=== PATIENT | male | born 1935 | race African-American/Black ===

== ENCOUNTER 2017-02-28 08:12 | Observation (INO) | payer MEDICARE, OTHER ==
[2017-02-28 08:38] LABS: HEMATOCRIT 38.8 % (37.9-51.0); HEMOGLOBIN 12.9 g/dL (13.5-17.0); HGB HCT DIFFERENCE -0.1; MEAN CORPUSCULAR HEMOGLOBIN 26.9 pg (27.0-33.4); MEAN CORPUSCULAR HGB CONC 33.2 g/dL (32.0-36.0); MEAN CORPUSCULAR VOLUME 81 fl (80-97); RED BLOOD COUNT 4.77 10^6/uL (4.35-5.55); RED CELL DISTRIBUTION WIDTH 14.2 % (11.5-14.0); WHITE BLOOD COUNT 3.8 10^3/uL (4.0-10.5)
[2017-02-28 08:55] LABS: ALANINE AMINOTRANSFERASE 28 U/L (21-72); ALBUMIN 3.8 g/dL (3.5-5.0); ALKALINE PHOSPHATASE 106 U/L (38-126); ANION GAP 12 (5-19); ASPARTATE AMINO TRANSFERASE 25 U/L (17-59); BILIRUBIN,DIRECT 0.2 mg/dL (0.0-0.4); BILIRUBIN,TOTAL 0.5 mg/dL (0.2-1.3); BLOOD UREA NITROGEN 25 mg/dL (7-20); CALCIUM 8.8 mg/dL (8.4-10.2); CARBON DIOXIDE 24 mmol/L (22-30); CHLORIDE 107 mmol/L (98-107); CREATININE RESULT 1.86 mg/dL (0.52-1.25); GLUCOSE 114 mg/dL (75-110); POTASSIUM 4.1 mmol/L (3.6-5.0); SODIUM 142.8 mmol/L (137-145); TOTAL PROTEIN 6.5 g/dL (6.3-8.2)
[2017-02-28 08:59] LABS: BAND NEUTROPHILS % (MANUAL) 3 % (3-5); BASOPHILS % (MANUAL) 0 % (0-2); EOSINOPHILS % (MANUAL) 0 % (0-6); LYMPHOCYTES % (MANUAL) 6 % (13-45); TOTAL CELLS COUNTED 100
[2017-02-28 09:00] LABS: RBC MORPHOLOGY COMMENT NORMO-CYTIC/CHROMIC
--- NOTE | 2017-02-28 09:33 | ER Document Report ---
ED GI/ - General Time seen by provider: 09:40 Mode of Arrival: Ambulatory Information source: Patient TRAVEL OUTSIDE OF THE [place] IN LAST 30 DAYS: No - HPI Patient complains to provider of: Vomiting Onset: Other - see HPI note Timing/Duration: Sudden Associated symptoms: Chills, Lightheaded, Nausea, Vomiting Similar symptoms previously: No Recently seen / treated by doctor: No <ARMANI MARTINEZ - Last Filed: 02/28/17 11:18> <CHERISE FOY - Last Filed: 02/28/17 13:39> - General Chief Complaint: Nausea/Vomiting Stated Complaint: VOMITING Notes: Patient is an 81 year old male presenting to the ED for nausea and vomiting. Patient states that he woke up at 04:00 this morning with body aches, chills, and nausea, and at 06:00 the patient was vomiting. Patient mostly has been dry heaving. Patient had dinner last night in which he ate a sausage dog. Patient denies any pain, shortness of breath, diarrhea, or chest pain. Patient has no known allergies. Patient has a history of diabetes mellitus, is taking lasix for his chronic leg edema, and a negative stress test in November 2015. Patient' s PCP is Dr. Kay. (ARMANI MARTINEZ) - Related Data Allergies/Adverse Reactions: No Known Allergies Allergy (Verified 02/28/17 08:38) Past Medical History - General Information source: Patient - Social History Smoking Status: Unknown if Ever Smoked Family History: None Patient has suicidal ideation: No Patient has homicidal ideation: No - Past Medical History Cardiac Medical History: Reports: Hx Congestive Heart Failure Pulmonary Medical History: Reports: Hx Pneumonia Endocrine Medical History: Reports: Hx Diabetes Mellitus Type 2 - Starlix Musculoskeltal Medical History: Reports Hx Arthritis - lower back Past Surgical History: Reports: Hx Kidney (Renal Surgery) - right nephrectomy due to cyst (06/2007), Hx Orthopedic Surgery - Bilateral Knee - Immunizations Hx Diphtheria, Pertussis, Tetanus Vaccination: No <ARMANI MARTINEZ - Last Filed: 02/28/17 11:18> Review of Systems - Review of Systems Constitutional: No symptoms reported EENT: No symptoms reported Cardiovascular: No symptoms reported. denies: Chest pain Respiratory: No symptoms reported. denies: Short of breath Gastrointestinal: See HPI, Nausea, Vomiting. denies: Diarrhea Genitourinary: No symptoms reported Male Genitourinary: No symptoms reported Musculoskeletal: No symptoms reported Skin: No symptoms reported Hematologic/Lymphatic: No symptoms reported Neurological/Psychological: No symptoms reported -: Yes All other systems reviewed and negative <ARMANI MARTIENZ - Last Filed: 02/28/17 11:18> Physical Exam - Vital signs Interpretation: Normal - General General appearance: Appears well - patient appears comfortable and is soft spoken, Alert In distress: Mild - HEENT Head: Normocephalic, Atraumatic Eyes: Normal Pupils: PERRL Mucous membranes: Moist - Respiratory Respiratory status: No respiratory distress Chest status: Nontender Breath sounds: Normal Chest palpation: Normal - Cardiovascular Rhythm: Regular Heart sounds: Normal auscultation Murmur: No - Abdominal Inspection: Normal Distension: No distension Bowel sounds: Normal Tenderness: Nontender Organomegaly: No organomegaly - Back Back: Normal, Nontender - Extremities General upper extremity: Normal inspection, Normal ROM, Normal strength General lower extremity: Edema - 2+ pitting edema consistent with patient's history, Other - bunion on the feet bilaterally, worse on the right; dry, hard ulcerated area on the medial side of the right foot, there is a hole with concentric rings of dry skin, no inflammation - Neurological Neuro grossly intact: Yes Cognition: Normal Orientation: AAOx4 [place] Coma Scale Eye Opening: Spontaneous James Coma Scale Verbal: Oriented [place] Coma Scale Motor: Obeys Commands James Coma Scale Total: 15 Speech: Normal Sensory: Normal - Psychological Associated symptoms: Normal affect, Normal mood - Skin Skin Temperature: Warm Skin Moisture: Dry <ARMANI MARTINEZ - Last Filed: 02/28/17 11:18> <CHERISE FOY - Last Filed: 02/28/17 13:39> - Vital signs Vitals: Resp Pulse Ox 24 H 94 02/28/17 08:18 02/28/17 08:18 Course - Laboratory Result Diagrams: 02/28/17 08:23 02/28/17 08:23 <ARMANI MARTINEZ - Last Filed: 02/28/17 11:18> - Laboratory Result Diagrams: 02/28/17 08:23 02/28/17 08:23 - Diagnostic Test Radiology reviewed: Image reviewed, Reports reviewed - Chest x-ray shows right- sided aortic arch no acute process. - EKG Interpretation by Me EKG shows normal: Sinus rhythm, [place], Intervals, QRS Complexes, ST-T Waves Rate: Normal - 87 Rhythm: NSR When compared to previous EKG there are: No significant change - Consults Dr. Mojica Time consulted: 12:05 Consulted provider: will see as inpatient <CHERISE FOY - Last Filed: 02/28/17 13:39> - Vital Signs Vital signs: Temp Pulse Resp BP Pulse Ox 98.1 F 95 25 H 118/65 98 02/28/17 10:19 02/28/17 08:31 02/28/17 12:01 02/28/17 12:01 02/28/17 12:01 - Laboratory Laboratory results interpreted by me: 02/28/17 02/28/17 02/28/17 08:23 08:23 08:23 WBC 3.8 L Hgb 12.9 L MCH 26.9 L RDW 14.2 H Seg Neuts % (Manual) 91 H Lymphocytes % (Manual) 6 L Monocytes % (Manual) 0 L Abs Lymphs (Manual) 0.2 L Abs Monocytes (Manual) 0.0 L BUN 25 H Creatinine 1.86 H Est GFR ( Amer) 42 L Est GFR (Non-Af Amer) 35 L Glucose 114 H Creatine Kinase 179 H Discharge <MICHELLEARMANI - Last Filed: 02/28/17 11:18> - Discharge Admitting Provider: Rahul Mojica covering. Unit Admitted: Medical Floor <CHERISE FOY - Last Filed: 02/28/17 13:39> - Discharge Clinical Impression: Fever with chills, Left shift without diagnosis of specific infection, Stage III chronic kidney disease Nausea and vomiting Qualifiers: Vomiting type: unspecified Vomiting Intractability: non-intractable Qualified Code(s): R11.2 - Nausea with vomiting, unspecified Diabetes mellitus Qualifiers: Diabetes mellitus type: type 2 Diabetes mellitus complication status: without complication Diabetes mellitus halfway insulin use: without halfway use Qualified Code(s): E11.9 - Type 2 diabetes mellitus without complications Scribe Attestation: 02/28/17 13:39 I personally performed the services described in the documentation, reviewed and edited the documentation which was dictated to the scribe in my presence, and it accurately records my words and actions. (CHERISE FOY) Scribe Documentation - Scribe Written by Shalini:: Armani Martinez 02/28/17 11:00 acting as scribe for :: Annita <ARMANI MARTINEZ - Last Filed: 02/28/17 11:18>
[2017-02-28 09:56] LABS: ADD ON TESTING BLD IN LAB ACKNOWLEDGE
[2017-02-28 10:06] LABS: CREATINE KINASE 179 U/L (55-170); MAGNESIUM 1.9 mg/dL (1.6-2.3)
[2017-02-28 10:26] LABS: APPEARANCE,URINE CLEAR; BILIRUBIN,URINE NEGATIVE (NEGATIVE); GLUCOSE, URINE NEGATIVE (NEGATIVE); KETONES,URINE NEGATIVE (NEGATIVE); LEUKOCYTE ESTERASE,URINE NEGATIVE (NEGATIVE); NITRITE,URINE NEGATIVE (NEGATIVE); PROTEIN,URINE NEGATIVE (NEGATIVE); URINE SPECIFIC GRAVITY 1.009; UROBILINOGEN,URINE NEGATIVE mg/dL (<2.0)
[2017-02-28] MEDS ORDERED: LEVOFLOXACIN 750 MG/D5W RTU 150 ML IV ONE (12:11)
[2017-02-28] MEDS ORDERED: NORMAL SALINE 1000 ML 1,000 ML IV PRN (16:13)
[2017-02-28] MEDS ORDERED: ONDANSETRON HCL INJ/PF 4 MG/2 ML SDV IV PRN (18:53)
--- NOTE | 2017-02-28 19:12 | PDOC H&P ---
History of Present Illness Admission Date/PCP: 02/28/17 13:11 CARY KANG MD History of Present Illness: PARKER SHERWOOD is a 81 year old male, he has type 2 diabetes mellitus, he said about 4 AM this morning, he felt chills, feverish and malaise, he told his about it and she is suggested that he should go to emergency room. He denied any cough, shortness of breath, urinary symptoms or any other complaints. In the emergency room he was evaluated the white cell count was 3.9 with 90% neutrophils the chest x-ray was negative for any acute infiltrates. He has a history of type 2 diabetes mellitus on intake status for the control of his blood sugar he also have only one kidney is right kidney was removed in 2006 when a mass was found and there was suspicion of malignancy but it turned out to be just a cyst a benign lesion it was nonmalignant. When I saw patient on the floor he was stable, he is comfortable in bed on examination and auscultation of his chest there are crackles at the bases of his lung, CT chest of his lung is ordered. He is empirically started on Levaquin for the emergency room because of the suspicion for infection of some sort. Past Medical History Pulmonary Medical History: Reports: Pneumonia Endocrine Medical History: Reports: Diabetes Mellitus Type 2 - Starlix Musculoskeltal Medical History: Reports: Arthritis - lower back Past Surgical History Past Surgical History: Reports: Orthopedic Surgery - Bilateral Knee Social History Lives with: Family Smoking Status: Unknown if Ever Smoked Frequency of Alcohol Use: None Hx Prescription Drug Abuse: No Family History Family History: None Parental Family History Reviewed: Yes Children Family History Reviewed: Yes Sibling(s) Family History Reviewed.: Yes Medication/Allergy Home Medications: Cholecalciferol (Vitamin D3) [Vitamin D3 1000 Unit Tablet] 1,000 unit PO DAILY 02/28/17 Furosemide [Lasix] 40 mg PO QAM 02/28/17 Nateglinide [Starlix] 120 mg PO TID 02/28/17 Allergies/Adverse Reactions: No Known Allergies Allergy (Verified 02/28/17 08:38) Review of Systems Constitutional: PRESENT: fever(s) Eyes: ABSENT: visual disturbances Ears: ABSENT: hearing changes Cardiovascular: ABSENT: chest pain, dyspnea on exertion, edema, orthropnea, palpitations Respiratory: ABSENT: cough, hemoptysis Gastrointestinal: ABSENT: abdominal pain, constipation, diarrhea, hematemesis, hematochezia, nausea, vomiting Genitourinary: ABSENT: dysuria, hematuria Musculoskeletal: ABSENT: joint swelling Integumentary: ABSENT: rash, wounds Neurological: ABSENT: abnormal gait, abnormal speech, confusion, dizziness, focal weakness, syncope Psychiatric: ABSENT: anxiety, depression, homidical ideation, suicidal ideation Endocrine: ABSENT: cold intolerance, heat intolerance, menstrual abnormalities, polydipsia, polyuria Hematologic/Lymphatic: ABSENT: easy bleeding, easy bruising, lymphadenopathy Physical Exam Vital Signs: Temp Pulse Resp BP Pulse Ox 97.7 F 76 20 107/54 L 98 02/28/17 17:00 02/28/17 17:00 02/28/17 17:00 02/28/17 17:00 02/28/17 17:00 Intake & Output 02/27/17 02/28/17 03/01/17 06:59 06:59 06:59 Intake Total 0 Balance 0 Weight 105.3 kg General appearance: PRESENT: no acute distress, well-developed, well-nourished Head exam: PRESENT: atraumatic, normocephalic Eye exam: PRESENT: conjunctiva pink, EOMI, PERRLA Ear exam: PRESENT: normal external ear exam Mouth exam: PRESENT: moist, tongue midline Neck exam: PRESENT: full ROM Respiratory exam: PRESENT: crackles Cardiovascular exam: PRESENT: RRR, +S1, +S2 Vascular exam: PRESENT: normal capillary refill GI/Abdominal exam: PRESENT: normal bowel sounds, soft Rectal exam: PRESENT: deferred Neurological exam: PRESENT: alert, awake, oriented to person, oriented to place , oriented to time, oriented to situation, CN II-XII grossly intact Psychiatric exam: PRESENT: appropriate affect, normal mood Skin exam: PRESENT: dry, intact, warm Results Impressions: Chest X-Ray 02/28/17 09:44 IMPRESSION: No acute cardiopulmonary findings. Right-sided aortic arch. Assessment & Plan - Diagnosis (1) Fever and chills Is this a current diagnosis for this admission?: YesPlan: The etiology is not clear, CT chest is ordered, empirically treated with Levaquin (2) Stage III chronic kidney disease Is this a current diagnosis for this admission?: Yes (3) Diabetes mellitus Qualifiers: Diabetes mellitus type: type 2 Diabetes mellitus complication status: with unspecified complications Diabetes mellitus emt intermediate insulin use: without correction use Qualified Code(s): E11.8 - Type 2 diabetes mellitus with unspecified complications Is this a current diagnosis for this admission?: Yes
--- NOTE | 2017-02-28 21:10 | EKG REPORT ---
SEVERITY:- NORMAL ECG - SINUS RHYTHM : Confirmed by: Emma Savage MD 28-Feb-2017 21:09:24
[2017-03-01] MEDS ORDERED: FUROSEMIDE 40 MG TABLET PO SCH (08:00)
[2017-03-01] MEDS ORDERED: (PENDING PHARMACY ID) (Nateglinide [Starlix] 120 MG) PO SCH (10:00)
[2017-03-01] MEDS ORDERED: CHOLECALCIFEROL (D3) 1,000 UNIT TABLET PO SCH (10:00)
[2017-03-01] MEDS: NATEGLINIDE 60 MG TABLET PO SCH ×2 (10:59→17:14)
[2017-03-01] MEDS ORDERED: LEVOFLOXACIN 750 MG TABLET PO ONE (12:30)
[2017-03-01] MEDS ORDERED: DEXTROSE 50%-WATER 25 GM/50 ML DISP.SYRIN IV PRN ×2 (13:03)
[2017-03-01] MEDS ORDERED: GLUCAGON,HUMAN RECOMB 1 MG INJ IM PRN (13:03)
[2017-03-01] MEDS ORDERED: INSULIN LISPRO 100 UNIT/ML 3 ML VIAL SUBCUT PRN (13:03)
[2017-03-01] MEDS ORDERED: DEXTROSE 40% GEL 15 GM TUBE PO PRN ×2 (13:03)
--- NOTE | 2017-03-01 13:03 | PDOC PROGRESS REPORT ---
Subjective Progress Note for:: 03/01/17 Subjective:: Patient was admitted because of the fever and rule out sepsis. Patient's CT of the chest was negative for any pneumonia and patient's blood culture was also negative. Patient have a history of the liver abscess in the past will get the CT abdomen and pelvis which also negative. Patient's denied any chest pain denied any shortness of the breath Physical Exam Vital Signs: Temp Pulse Resp BP Pulse Ox 97.6 F 68 18 116/57 L 98 03/01/17 11:44 03/01/17 11:44 03/01/17 11:44 03/01/17 11:44 03/01/17 11:44 Intake & Output 02/28/17 03/01/17 03/02/17 06:59 06:59 06:59 Intake Total 765 240 Balance 765 240 Weight 105.3 kg General appearance: PRESENT: no acute distress, well-developed, well-nourished Head exam: PRESENT: atraumatic, normocephalic Eye exam: PRESENT: conjunctiva pink, EOMI, PERRLA. ABSENT: scleral icterus Ear exam: PRESENT: normal external ear exam Mouth exam: PRESENT: moist, tongue midline Neck exam: PRESENT: full ROM. ABSENT: carotid bruit, JVD, lymphadenopathy, thyromegaly Respiratory exam: PRESENT: clear to auscultation ericka Cardiovascular exam: PRESENT: RRR. ABSENT: diastolic murmur, rubs, systolic murmur Pulses: PRESENT: normal dorsalis pedis pul, +2 pedal pulses bilateral Vascular exam: PRESENT: normal capillary refill GI/Abdominal exam: PRESENT: normal bowel sounds, soft. ABSENT: distended, guarding, mass, organolmegaly, rebound, tenderness Rectal exam: PRESENT: deferred Neurological exam: PRESENT: alert, awake, oriented to person, oriented to place , oriented to time, oriented to situation, CN II-XII grossly intact. ABSENT: motor sensory deficit Psychiatric exam: PRESENT: appropriate affect, normal mood. ABSENT: homicidal ideation, suicidal ideation Skin exam: PRESENT: dry, intact, warm. ABSENT: cyanosis, rash Results Impressions: Chest X-Ray 02/28/17 09:44 IMPRESSION: No acute cardiopulmonary findings. Right-sided aortic arch. Chest CT 02/28/17 19:05 IMPRESSION: Minimal linear atelectasis in the lung bases. No consolidation or pleural effusion. Abdomen/Pelvis CT 03/01/17 00:00 IMPRESSION: 1. COLONIC DIVERTICULOSIS. NO CT FINDINGS OF ACUTE DIVERTICULITIS. 2. LEFT INGUINAL HERNIA CONTAINING FAT ONLY. 3. POST RIGHT NEPHRECTOMY. 4. NO OTHER SIGNIFICANT OR ACUTE ABDOMINAL PROCESS. Assessment & Plan - Diagnosis (1) Fever and chills Is this a current diagnosis for this admission?: YesPlan: Will get the urine culture and the flu test most likely viral origin (2) Nausea and vomiting Qualifiers: Vomiting type: unspecified Vomiting Intractability: non-intractable Qualified Code(s): R11.2 - Nausea with vomiting, unspecified Is this a current diagnosis for this admission?: YesPlan: Currently all stable so the CT abdomen and pelvis is all negative for any acute finding (3) Stage III chronic kidney disease Is this a current diagnosis for this admission?: YesPlan: Currently stable patient see outpatients Dr. Zamora (4) Diabetes mellitus Qualifiers: Diabetes mellitus type: type 2 Diabetes mellitus complication status: with unspecified complications Diabetes mellitus meterman insulin use: without alf use Qualified Code(s): E11.8 - Type 2 diabetes mellitus with unspecified complications; Z79.4 - retirement (current) use of insulin Is this a current diagnosis for this admission?: YesPlan: Stable - Time Time Spent with patient: 15-24 minutes Medications reviewed and adjusted accordingly: Yes Anticipated discharge: Home, Other - Inpatient Certification Medical Necessity: Need Close Monitoring Due to Risk of Patient Decompensation Post Hospital Care: 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
[2017-03-02 07:02] LABS: ANION GAP 10 (5-19); BLOOD UREA NITROGEN 19 mg/dL (7-20); CARBON DIOXIDE 25 mmol/L (22-30); CHLORIDE 105 mmol/L (98-107); CREATININE RESULT 1.63 mg/dL (0.52-1.25); GLUCOSE 134 mg/dL (75-110); HEMATOCRIT 36.8 % (37.9-51.0); HEMOGLOBIN 12.1 g/dL (13.5-17.0); HGB HCT DIFFERENCE -0.5; MEAN CORPUSCULAR HEMOGLOBIN 26.8 pg (27.0-33.4); MEAN CORPUSCULAR HGB CONC 32.8 g/dL (32.0-36.0); MEAN CORPUSCULAR VOLUME 82 fl (80-97); POTASSIUM 4.6 mmol/L (3.6-5.0); RED BLOOD COUNT 4.51 10^6/uL (4.35-5.55); RED CELL DISTRIBUTION WIDTH 14.9 % (11.5-14.0); SODIUM 140.2 mmol/L (137-145); WHITE BLOOD COUNT 4.4 10^3/uL (4.0-10.5)
[2017-03-02 07:23] LABS: BASOPHILS % (MANUAL) 0 % (0-2); EOSINOPHILS % (MANUAL) 2 % (0-6); LYMPHOCYTES % (MANUAL) 25 % (13-45); RBC MORPHOLOGY COMMENT NORMO-CYTIC/CHROMIC; TOTAL CELLS COUNTED 100
[2017-03-02 08:20] VITALS: BP 118/61
[2017-03-02] MEDS ORDERED: LEVOFLOXACIN 750 MG TABLET PO SCH (10:00)
--- NOTE | 2017-03-02 15:58 | PDOC DISCHARGE SUMMARY ---
General - Admit/Disc Date/PCP Admission Date/Primary Care Provider: 02/28/17 18:26 CARY KANG MD Discharge Date: 03/02/17 - Discharge Diagnosis (1) Fever and chills Is this a current diagnosis for this admission?: YesSummary: Most likely viral origin patients all the blood cultures negative and a CT of the chest and CT of the abdomen and pelvis is all negative (2) Nausea and vomiting Is this a current diagnosis for this admission?: YesSummary: All resolved (3) Stage III chronic kidney disease Is this a current diagnosis for this admission?: YesSummary: Last creatinine was 1.68 and currently stable (4) Diabetes mellitus Is this a current diagnosis for this admission?: YesSummary: Currently stable with the continues to current medications - Additional Information Discharge Diet: Diabetic Discharge Activity: Activity As Tolerated Home Medications: Cholecalciferol (Vitamin D3) [Vitamin D3 1000 Unit Tablet] 1,000 unit PO DAILY 02/28/17 Furosemide [Lasix] 40 mg PO QAM 02/28/17 Nateglinide [Starlix] 120 mg PO TID 02/28/17 Levofloxacin [Levaquin 250 mg Tablet] 250 mg PO DAILY #5 tablet 03/02/17 History of Present Illness History of Present Illness: PARKER SHERWOOD is a 82 year old male This is a 82-year-old male basically admitting in the hospital because of the fever and chills but other than that no other symptoms patient initial blood cultures chest x-ray was all negative and patient's was had a history of the liver abscess in the past and decided to admit for further evaluation and treatments Hospital Course Hospital Course: Patient was admitted because of the fever and chills and start the patient on IV Levaquin and the patient's response very well with that patients all the blood cultures urine cultures and the CT of the chest and CT abdomen and pelvis was all negative and the patient's remained afebrile and patient's discharged with the p.o. Levaquin for 5 days. Most likely a patient symptoms of viral origin which is currently all resolved patient having no nausea no vomiting in the hospital and p.o. intake is good and patient's ambulatory with his without any problems in the hallway Physical Exam Vital Signs: Temp Pulse Resp BP Pulse Ox 97.2 F 72 16 118/61 99 03/02/17 08:21 03/02/17 08:21 03/02/17 08:21 03/02/17 08:21 03/02/17 08:21 Intake & Output 03/01/17 03/02/17 03/03/17 06:59 06:59 06:59 Intake Total 765 1010 Balance 765 1010 General appearance: PRESENT: no acute distress, well-developed, well-nourished Head exam: PRESENT: atraumatic, normocephalic Eye exam: PRESENT: conjunctiva pink, EOMI, PERRLA. ABSENT: scleral icterus Ear exam: PRESENT: normal external ear exam Mouth exam: PRESENT: moist, tongue midline Neck exam: PRESENT: full ROM. ABSENT: carotid bruit, JVD, lymphadenopathy, thyromegaly Respiratory exam: PRESENT: clear to auscultation ericka Cardiovascular exam: PRESENT: RRR. ABSENT: diastolic murmur, rubs, systolic murmur Pulses: PRESENT: normal dorsalis pedis pul, +2 pedal pulses bilateral Vascular exam: PRESENT: normal capillary refill GI/Abdominal exam: PRESENT: normal bowel sounds, soft. ABSENT: distended, guarding, mass, organolmegaly, rebound, tenderness Rectal exam: PRESENT: deferred Neurological exam: PRESENT: alert, awake, oriented to person, oriented to place , oriented to time, oriented to situation, CN II-XII grossly intact. ABSENT: motor sensory deficit Psychiatric exam: PRESENT: appropriate affect, normal mood. ABSENT: homicidal ideation, suicidal ideation Skin exam: PRESENT: dry, intact, warm. ABSENT: cyanosis, rash Results Laboratory Results: 03/02/17 06:00 03/02/17 06:00 03/02/17 03/02/17 06:00 06:00 WBC 4.4 RBC 4.51 Hgb 12.1 L Hct 36.8 L MCV 82 MCH 26.8 L MCHC 32.8 RDW 14.9 H Plt Count 131 L Seg Neutrophils % Not Reportable Lymphocytes % Not Reportable Monocytes % Not Reportable Eosinophils % Not Reportable Basophils % Not Reportable Absolute Neutrophils Not Reportable Absolute Lymphocytes Not Reportable Absolute Monocytes Not Reportable Absolute Eosinophils Not Reportable Absolute Basophils Not Reportable Sodium 140.2 Potassium 4.6 Chloride 105 Carbon Dioxide 25 Anion Gap 10 BUN 19 Creatinine 1.63 H Est GFR ( Amer) 49 L Est GFR (Non-Af Amer) 41 L Glucose 134 H Calcium 9.0 Impressions: Chest X-Ray 02/28/17 09:44 IMPRESSION: No acute cardiopulmonary findings. Right-sided aortic arch. Chest CT 02/28/17 19:05 IMPRESSION: Minimal linear atelectasis in the lung bases. No consolidation or pleural effusion. Abdomen/Pelvis CT 03/01/17 00:00 IMPRESSION: 1. COLONIC DIVERTICULOSIS. NO CT FINDINGS OF ACUTE DIVERTICULITIS. 2. LEFT INGUINAL HERNIA CONTAINING FAT ONLY. 3. POST RIGHT NEPHRECTOMY. 4. NO OTHER SIGNIFICANT OR ACUTE ABDOMINAL PROCESS. Plan Time Spent: Less than 30 Minutes - Discharge home with the p.o. Levtashauin follow an outpatient in 1 week and repeat the CBC and Chem-7
== END 2017-03-02 09:39 | disposition home or self-care (01) ==
LOC: ER 08:12 → EH 13:11 → INTOOBSV 13:11 → UNDOADMOB 13:11 → 5 16:22 → EH 16:22 → 5 18:26
PROVIDERS: ADMIT Family Medicine; ATTEND Family Medicine
PROC: 3E033GC Introduction of Other Therapeutic Substance into Peripheral Vein, Percutaneous Approach (ICD-10-PCS; principal; 2017-02-28)
DX: R50.9 Fever, unspecified (principal); R11.2 Nausea with vomiting, unspecified; E11.22 Type 2 diabetes mellitus with diabetic chronic kidney disease; N18.3 Chronic kidney disease, stage 3 (moderate); Z90.5 Acquired absence of kidney
CPT/HCPCS: 93005; 99285; 96365; 36415 ×2; 87040; 87086; 82962 ×3; 82550; 83735; 85025 ×2; 80048; 80053; 81001; 84484; 87804; 71010; 71250; 74176; 93010; G0378 ×3; A9270 ×2; J1956

== ENCOUNTER → 2017-03-25 | Outpatient (CLI) | payer MEDICARE, OTHER ==
--- NOTE | 2017-03-25 18:30 | XCELERA REPORT ---
[address] [address] Lower Extremity Arterial Evaluation Name: ALEJO SHERWOOD Age: 82 yrs Gender: Male : 1935 Patient Status: Outpatient Patient Location: Study Date: 03/25/2017 11:06 AM Procedure: A color flow and duplex scan of the lower extremity arteries was performed bilaterally with velocity and waveform analysis. 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 0 % stenosis noted. Ankle Brachial index is 1.25. Left Side Arterial Evaluation Normal velocity and triphasic waveforms noted from the Common Femoral artery to the infrageniculate vessels. 0 % stenosis noted. Ankle Brachial index is 1.24. Interpretation Summary No hemodynamically significant lesions in the bilateral lower extremities, on duplex imaging, at rest. : CARY KANG > Andrew Webb
== END ==
LOC: SP 10:45
PROVIDERS: ATTEND Family Medicine
DX: M79.604 Pain in right leg (principal); M79.605 Pain in left leg
CPT/HCPCS: 87070; 87075; 87077; 87186; 87205; 93925

== ENCOUNTER → 2017-03-29 | Outpatient (CLI) | payer MEDICARE, OTHER | LOC: OD 10:46 | PROVIDERS: ATTEND Family Medicine | DX: S91.301A Unspecified open wound, right foot, initial encounter (principal); X58.XXXA Exposure to other specified factors, initial encounter ==

== ENCOUNTER → 2018-03-29 | Outpatient (CLI) | payer MEDICARE, OTHER ==
--- NOTE | 2018-03-29 16:09 | RADIOLOGY REPORT (SQ) ---
EXAM DESCRIPTION: FOOT RIGHT COMPLETE COMPLETED DATE/TIME: 03/29/2018 11:42 am REASON FOR STUDY: PAIN OF RIGHT HEEL M79.671 PAIN IN RIGHT FOOT COMPARISON: None. NUMBER OF VIEWS: 03/29/2017 TECHNIQUE: AP, lateral and oblique radiographic images acquired of the right foot. LIMITATIONS: None. FINDINGS: MINERALIZATION: Normal. BONES: Hallux valgus with prominent bunion. A no acute fracture or dislocation. JOINTS: No effusions. SOFT TISSUES: No soft tissue swelling. No foreign body. OTHER: No other significant finding. IMPRESSION: I a hallux valgus with no acute abnormality. No calcaneal spurs are seen. TECHNICAL DOCUMENTATION: JOB ID: [id number] [employer]- All Rights Reserved Reading location - IP/workstation name: [email or web address]
== END ==
LOC: OD 11:23
PROVIDERS: ATTEND Family Medicine
DX: M79.671 Pain in right foot (principal)

== ENCOUNTER → 2018-09-21 | Outpatient (CLI) | payer MEDICARE, OTHER ==
--- NOTE | 2018-09-21 14:32 | RADIOLOGY REPORT (SQ) ---
EXAM DESCRIPTION: U/S RETROPERITON (RENAL/AORTA) COMPLETED DATE/TIME: 09/21/2018 2:14 pm REASON FOR STUDY: CKD III (N18.3) N18.3 CHRONIC KIDNEY DISEASE, STAGE 3 (MODERATE) I12.9 HYPERTENS DIEGO CHRONIC KIDNEY DISEASE W STG 1-4/UNSP CHR COMPARISON: None. TECHNIQUE: Dynamic and static grayscale images acquired of the kidneys and bladder and recorded on P ACS. Additional selected color Doppler and spectral images recorded. LIMITATIONS: None. FINDINGS: RIGHT KIDNEY: Surgically absent. LEFT KIDNEY: Normal size, 12.1 cm. Normal echogenicity. No solid or suspicious masses. No hydronephr osis. No calcifications. BLADDER: No masses. OTHER FINDINGS: No other significant finding. IMPRESSION: NORMAL RENAL AND BLADDER ULTRASOUND. TECHNICAL DOCUMENTATION: JOB ID: [id number] [employer]- All Rights Reserved Reading location - IP/workstation name: [email or web address]
== END ==
LOC: RAD 13:45
PROVIDERS: ATTEND Internal Medicine Nephrology
DX: I12.9 Hypertensive chronic kidney disease with stage 1 through stage 4 chronic kidney disease, or unspecified chronic kidney disease (principal); N18.3 Chronic kidney disease, stage 3 (moderate)
CPT/HCPCS: 76770

== ENCOUNTER 2019-02-03 16:59 | Emergency (ER) | payer MEDICARE, OTHER ==
[2019-02-03 17:07] VITALS: BP 145/71
--- NOTE | 2019-02-03 17:38 | ER Document Report ---
ED Medical Screen (RME) - General Chief Complaint: Leg Pain Stated Complaint: LEG PAIN Time Seen by Provider: 02/03/19 17:31 Primary Care Provider: Kinsey MERLOS MD [Primary Care Provider] - Follow up as needed Mode of Arrival: Ambulatory Information source: Patient Notes: This is an 83-year-old man with a history of diabetes, chronic kidney disease who is referred to the emergency room for concerns of DVT to the left lower extremity. Patient has been experiencing some left calf pain for the last week. He does state that he hit the anterior portion of his left lower extremity and had a site that was bleeding. He denies fever. He denies any chest pain or shortness of breath. TRAVEL OUTSIDE OF THE [place] IN LAST 30 DAYS: No - Related Data Allergies/Adverse Reactions: No Known Allergies Allergy (Verified 02/03/19 17:02) Past Medical History - Social History Chew tobacco use (# tins/day): No Frequency of alcohol use: None Drug Abuse: None - Past Medical History Cardiac Medical History: Reports: Hx Congestive Heart Failure Denies: Hx Coronary Artery Disease, Hx DVT, Hx Heart Attack, Hx Hypercholesterolemia, Hx Hypertension, Hx Pulmonary Embolism Pulmonary Medical History: Reports: Hx Pneumonia Denies: Hx Asthma, Hx Bronchitis, Hx COPD Neurological Medical History: Denies: Hx Cerebrovascular Accident, Hx Seizures Endocrine Medical History: Reports: Hx Diabetes Mellitus Type 2 - Starlix Renal/ Medical History: Denies: Hx Peritoneal Dialysis Musculoskeltal Medical History: Reports Hx Arthritis - lower back Past Surgical History: Reports: Hx Kidney (Renal Surgery) - right nephrectomy due to cyst (06/2007), Hx Orthopedic Surgery - Bilateral Knee. Denies: Hx Pacemaker - Immunizations Hx Diphtheria, Pertussis, Tetanus Vaccination: No Physical Exam - Vital signs Vitals: Temp Pulse Resp BP Pulse Ox 98.8 F 91 20 145/71 H 100 02/03/19 17:06 02/03/19 17:06 02/03/19 17:06 02/03/19 17:06 02/03/19 17:06 Course - Vital Signs Vital signs: Temp Pulse Resp BP Pulse Ox 98.8 F 91 20 145/71 H 100 02/03/19 17:06 02/03/19 17:06 02/03/19 17:06 02/03/19 17:06 02/03/19 17:06 Doctor's Discharge - Discharge Referrals: Kinsey MERLOS MD [Primary Care Provider] - Follow up as needed
[2019-02-03 18:10] LABS: HEMATOCRIT 41.8 % (37.9-51.0); HEMOGLOBIN 13.7 g/dL (13.5-17.0); MEAN CORPUSCULAR HGB CONC 32.8 g/dL (32.0-36.0); MEAN CORPUSCULAR VOLUME 82 fl (80-97); PLATELET COUNT 181 10^3/uL (150-450); RED BLOOD COUNT 5.09 10^6/uL (4.35-5.55); RED CELL DISTRIBUTION WIDTH 13.7 % (11.5-14.0); WHITE BLOOD COUNT 13.6 10^3/uL (4.0-10.5)
[2019-02-03 18:25] LABS: ALANINE AMINOTRANSFERASE 19 U/L (21-72); ALBUMIN 4.5 g/dL (3.5-5.0); ALKALINE PHOSPHATASE 109 U/L (38-126); ANION GAP 12 (5-19); ASPARTATE AMINO TRANSFERASE 24 U/L (17-59); BILIRUBIN,DIRECT 0.2 mg/dL (0.0-0.4); BILIRUBIN,TOTAL 0.9 mg/dL (0.2-1.3); BLOOD UREA NITROGEN 22 mg/dL (7-20); CALCIUM 9.4 mg/dL (8.4-10.2); CARBON DIOXIDE 26 mmol/L (22-30); CHLORIDE 102 mmol/L (98-107); GLUCOSE 138 mg/dL (75-110); POTASSIUM 4.9 mmol/L (3.6-5.0); SODIUM 139.9 mmol/L (137-145); TOTAL PROTEIN 7.5 g/dL (6.3-8.2)
[2019-02-03 18:30] LABS: ABSOLUTE LYMPHOCYTES# (MANUAL) 0.7 10^3/uL (0.5-4.7); ABSOLUTE MONOCYTES # (MANUAL) 1.4 10^3/uL (0.1-1.4); ABSOLUTE NEUTROPHILS# (MANUAL) 11.6 10^3/uL (1.7-8.2); BASOPHILS % (MANUAL) 0 % (0-2); EOSINOPHILS % (MANUAL) 0 % (0-6); LYMPHOCYTES % (MANUAL) 5 % (13-45); MONOCYTES % (MANUAL) 10 % (3-13); PLATELET COMMENT ADEQUATE; SEGMENTED NEUTROPHILS % (MAN) 85 % (42-78); TOTAL CELLS COUNTED 100; TOXIC GRANULATION SLIGHT
--- NOTE | 2019-02-03 18:35 | RADIOLOGY REPORT (SQ) ---
EXAM DESCRIPTION: TIBIA FIBULA LEFT COMPLETED DATE/TIME: 02/03/2019 6:17 pm REASON FOR STUDY: erythema, swelling COMPARISON: None. NUMBER OF VIEWS: Two views. TECHNIQUE: Two radiographic images acquired of the left tibia and fibula to include the knee and ank le in at least one projection. LIMITATIONS: None. FINDINGS: MINERALIZATION: Normal. BONES: No acute fracture or dislocation. No worrisome bone lesions. SOFT TISSUES: No radiopaque foreign body. OTHER: No other significant finding. IMPRESSION: NO RADIOGRAPHIC EVIDENCE OF ACUTE INJURY. TECHNICAL DOCUMENTATION: JOB ID: [id number] [place]-72 2010 [employer]- All Rights Reserved Reading location - IP/workstation name: [email or web address]
[2019-02-03] MEDS ORDERED: CEPHALEXIN 500 MG CAPSULE PO ONE (19:40)
--- NOTE | 2019-02-03 19:46 | ER Document Report ---
ED General - General Chief Complaint: Leg Pain Stated Complaint: LEG PAIN Time Seen by Provider: 02/03/19 17:31 Primary Care Provider: Kinsey MERLOS MD [Primary Care Provider] - Follow up as needed Mode of Arrival: Ambulatory Notes: Patient is an 83-year-old male with past medical history of chronic kidney disease, diabetes, CHF, presents with 3 days of progressively worsening warmth, redness and pain to the left lower extremity below the level of the knee. Reports that he had an area that became open on the left lower extremity 4-5 days ago and then noticed spreading redness thereafter. The patient describes a dull, throbbing, constant pain to the leg. Nothing improves or worsens the pain. Denies history of similar symptoms in the past. Denies any fever or constitutional symptoms. Has not seen his primary care physician regarding today's concerns. TRAVEL OUTSIDE OF THE [place] IN LAST 30 DAYS: No - Related Data Allergies/Adverse Reactions: No Known Allergies Allergy (Verified 02/03/19 17:02) Past Medical History - General Information source: Patient - Social History Smoking Status: Never Smoker Chew tobacco use (# tins/day): No Frequency of alcohol use: None Drug Abuse: None Lives with: Spouse/Significant other Family History: Reviewed & Not Pertinent Patient has suicidal ideation: No Patient has homicidal ideation: No - Past Medical History Cardiac Medical History: Reports: Hx Congestive Heart Failure Denies: Hx Coronary Artery Disease, Hx DVT, Hx Heart Attack, Hx Hy percholesterolemia, Hx Hypertension, Hx Pulmonary Embolism Pulmonary Medical History: Reports: Hx Pneumonia Denies: Hx Asthma, Hx Bronchitis, Hx COPD Neurological Medical History: Denies: Hx Cerebrovascular Accident, Hx Seizures Endocrine Medical History: Reports: Hx Diabetes Mellitus Type 2 - Starlix Renal/ Medical History: Denies: Hx Peritoneal Dialysis Musculoskeletal Medical History: Reports Hx Arthritis - lower back Past Surgical History: Reports: Hx Kidney (Renal Surgery) - right nephrectomy due to cyst (06/2007), Hx Orthopedic Surgery - Bilateral Knee. Denies: Hx Pacemaker - Immunizations Hx Diphtheria, Pertussis, Tetanus Vaccination: No Review of Systems - Review of Systems Notes: Constitutional: Negative for fever. HENT: Negative for sore throat. Eyes: Negative for visual changes. Cardiovascular: Negative for chest pain. Respiratory: Negative for shortness of breath. Gastrointestinal: Negative for abdominal pain, vomiting or diarrhea. Genitourinary: Negative for dysuria. Musculoskeletal: Positive for left lower extremity pain Skin: Positive for rash to the left lower extremity Neurological: Negative for headaches, weakness or numbness. 10 point ROS negative except as marked above and in HPI. Physical Exam - Vital signs Vitals: Temp Pulse Resp BP Pulse Ox 98.8 F 91 20 145/71 H 100 02/03/19 17:06 02/03/19 17:06 02/03/19 17:06 02/03/19 17:06 02/03/19 17:06 Notes: PHYSICAL EXAMINATION: GENERAL: Well-appearing, well-nourished and in no acute distress. HEAD: Atraumatic, normocephalic. EYES: Pupils equal round and reactive to light, extraocular movements intact, sclera anicteric, conjunctiva are normal. ENT: nares patent, oropharynx clear without exudates. Moderate dry mucous memb ranes. NECK: Normal range of motion, supple without lymphadenopathy LUNGS: Breath sounds clear to auscultation bilaterally and equal. No wheezes rales or rhonchi. HEART: Regular rate and rhythm without murmurs ABDOMEN: Soft, nontender, normoactive bowel sounds. No guarding, no rebound. No masses appreciated. EXTREMITIES: Normal range of motion, 2+ pitting edema on the right, 3+ on left. NEUROLOGICAL: No focal neurological deficits. Moves all extremities spontaneously and on command. PSYCH: Normal mood, normal affect. SKIN: Warm, Dry, normal turgor, diffuse erythema over the left lower examinee below the level of the knee, increased warmth to palpation relative to the right lower extremity. Course - Re-evaluation Re-evalutation: 02/03/19 19:42 Patient presents with findings consistent with an acute cellulitis of the left lower extreme is likely secondary to skin breakdown over the left distal lower extremity mid tibial plateau. The leg is moderately swollen, erythematous, warm to touch there is no purulent component. Appears to be a double strep based cellulitis. Labs show mild leukocytosis at 13. Venous Doppler ultrasound obtained does not demonstrate any evidence of DVT. Low clinical suspicion for MRSA given absence of purulent component. Patient will follow up with his primary care physician on Wednesday, firmly understands that he needs to return to emergency department if he develops fever, worsening of the rash, increased pain, or constitutional symptoms. At this time will discharge with return precautions and follow-up recommendations. Verbal discharge instructions given a the bedside and opportunity for questions given. Medication warnings reviewed. Patient is in agreement with this plan and has verbalized understanding of return precautions and the need for primary care follow-up in the next 24-72 hours. - Vital Signs Vital signs: Temp Pulse Resp BP Pulse Ox 98.8 F 91 20 145/71 H 100 02/03/19 17:06 02/03/19 17:06 02/03/19 17:06 02/03/19 17:06 02/03/19 17:06 - Laboratory Result Diagrams: 02/03/19 17:45 02/03/19 17:45 Laboratory results interpreted by me: 02/03/19 02/03/19 17:45 17:45 WBC 13.6 H Seg Neuts % (Manual) 85 H Lymphocytes % (Manual) 5 L Abs Neuts (Manual) 11.6 H BUN 22 H Creatinine 2.01 H Est GFR ( Amer) 38 L Est GFR (Non-Af Amer) 32 L Glucose 138 H ALT 19 L Discharge - Discharge Clinical Impression: Left leg cellulitis, Left leg pain Condition: Good Disposition: HOME, SELF-CARE Additional Instructions: The rash is likely due to infection of your skin. You need to take the antibiotics as prescribed. You should also return if you develop fevers with temperature greater than 101, persistent vomiting, worsening pain, or have any other symptoms that are concerning to you. Follow-up with within the ne xt 48 hours. Prescriptions: Cephalexin Monohydrate [Keflex 500 mg Capsule] 500 mg PO Q6H 7 Days capsule Referrals: Kinsey MERLOS MD [Primary Care Provider] - Follow up in 3-5 days
--- NOTE | 2019-02-05 03:40 | RADIOLOGY REPORT (SQ) ---
EXAM DESCRIPTION: US EXTREMITY VEINS UNILATERAL COMPLETED DATE/TME: 02/03/2019 17:34 CLINICAL HISTORY: 83 years, Male, lle swelling COMPARISON: None. TECHNIQUE: Transverse longitudinal sonographic images left lower extremity deep venous system LIMITATIONS: None. FINDINGS: No visible areas of thrombus. Normal compression and augmentation throughout. Doppler and spectral analysis with color flow shows normal waveforms IMPRESSION: Negative exam copyright 2010 [employer]- All Rights Reserved
== END 2019-02-03 20:29 | disposition home or self-care (01) ==
LOC: ER 16:59
DX: L03.116 Cellulitis of left lower limb (principal); M79.605 Pain in left leg; R21 Rash and other nonspecific skin eruption; I13.0 Hypertensive heart and chronic kidney disease with heart failure and stage 1 through stage 4 chronic kidney disease, or unspecified chronic kidney disease; E11.22 Type 2 diabetes mellitus with diabetic chronic kidney disease; N18.9 Chronic kidney disease, unspecified; I50.9 Heart failure, unspecified; Z79.84 Long term (current) use of oral hypoglycemic drugs
CPT/HCPCS: 36415; 80053; 85025; 93971; 99284

== ENCOUNTER → 2019-03-16 | Outpatient (CLI) | payer MEDICARE, OTHER ==
--- NOTE | 2019-03-16 12:03 | RADIOLOGY REPORT (SQ) ---
EXAM DESCRIPTION: CHEST 2 VIEWS COMPLETED DATE/TIME: 03/16/2019 11:40 am REASON FOR STUDY: SOB (R06.02) COMPARISON: 08/09/2016 EXAM PARAMETERS: NUMBER OF VIEWS: two views TECHNIQUE: Digital Frontal and Lateral radiographic views of the chest acquired. RADIATION DOSE: NA LIMITATIONS: none FINDINGS: LUNGS AND PLEURA: No opacities, masses or pneumothorax. No pleural effusion. MEDIASTINUM AND HILAR STRUCTURES: No masses or contour abnormalities. HEART AND VASCULAR STRUCTURES: Heart size is stable. There is a right-sided aortic arch. BONES: No acute findings. HARDWARE: None in the chest. OTHER: No other significant finding. IMPRESSION: NO ACUTE RADIOGRAPHIC FINDING IN THE CHEST. TECHNICAL DOCUMENTATION: JOB ID: [id number] [employer]- All Rights Reserved Reading location - IP/workstation name: [email or web address]
== END ==
LOC: RAD 11:17
PROVIDERS: ATTEND Family Medicine
DX: N18.9 Chronic kidney disease, unspecified (principal); R06.02 Shortness of breath
CPT/HCPCS: 71046

== ENCOUNTER → 2019-10-06 | Outpatient (CLI) | payer MEDICARE, OTHER ==
[2019-10-06 14:40] LABS: HEMATOCRIT 38.8 % (37.9-51.0); HEMOGLOBIN 12.7 g/dL (13.5-17.0); MEAN CORPUSCULAR HGB CONC 32.8 g/dL (32.0-36.0); MEAN CORPUSCULAR VOLUME 82 fl (80-97); PLATELET COUNT 163 10^3/uL (150-450); RED BLOOD COUNT 4.72 10^6/uL (4.35-5.55); RED CELL DISTRIBUTION WIDTH 14.1 % (11.5-14.0); WHITE BLOOD COUNT 2.9 10^3/uL (4.0-10.5)
[2019-10-06 14:52] LABS: APPEARANCE,URINE CLEAR; BILIRUBIN,URINE NEGATIVE (NEGATIVE); COLOR,URINE YELLOW; GLUCOSE, URINE NEGATIVE (NEGATIVE); KETONES,URINE NEGATIVE (NEGATIVE); LEUKOCYTE ESTERASE,URINE NEGATIVE (NEGATIVE); NITRITE,URINE NEGATIVE (NEGATIVE); PROTEIN,URINE NEGATIVE (NEGATIVE); URINE SPECIFIC GRAVITY 1.012; UROBILINOGEN,URINE NEGATIVE mg/dL (<2.0)
[2019-10-06 15:19] LABS: ANION GAP 9 (5-19); BLOOD UREA NITROGEN 24 mg/dL (7-20); CALCIUM 8.8 mg/dL (8.4-10.2); CARBON DIOXIDE 27 mmol/L (22-30); CHLORIDE 103 mmol/L (98-107); GLUCOSE 161 mg/dL (75-110); PHOSPHORUS 2.7 mg/dL (2.5-4.5); POTASSIUM 4.2 mmol/L (3.6-5.0)
== END ==
LOC: OD 14:09
PROVIDERS: ATTEND Internal Medicine Nephrology
DX: I12.9 Hypertensive chronic kidney disease with stage 1 through stage 4 chronic kidney disease, or unspecified chronic kidney disease (principal); N18.3 Chronic kidney disease, stage 3 (moderate); E11.22 Type 2 diabetes mellitus with diabetic chronic kidney disease
CPT/HCPCS: 36415; 80048; 81001; 83970; 84100; 85027

== ENCOUNTER → 2020-04-11 | Outpatient (CLI) | payer MEDICARE, OTHER ==
[2020-04-11 12:45] LABS: ABSOLUTE EOSINOPHILS # (AUTO) 0.1 10^3/uL (0.0-0.6); ABSOLUTE MONOCYTES (AUTO) 0.5 10^3/uL (0.1-1.4); BASOPHILS % (AUTO) 0.9 % (0-2); EOSINOPHILS % (AUTO) 3.3 % (0-6); HEMATOCRIT 37.5 % (37.9-51.0); HEMOGLOBIN 12.5 g/dL (13.5-17.0); LYMPHOCYTES % (AUTO) 38.8 % (13-45); MEAN CORPUSCULAR HGB CONC 33.3 g/dL (32.0-36.0); MEAN CORPUSCULAR VOLUME 81 fl (80-97); MONOCYTES % (AUTO) 19.3 % (3-13); PLATELET COUNT 169 10^3/uL (150-450); RED BLOOD COUNT 4.62 10^6/uL (4.35-5.55); RED CELL DISTRIBUTION WIDTH 14.3 % (11.5-14.0); SEGMENTED NEUTROPHILS % (AUTO) 37.7 % (42-78); TOTAL CELLS COUNTED % (AUTO) 100 %; WHITE BLOOD COUNT 2.7 10^3/uL (4.0-10.5)
[2020-04-11 12:48] LABS: APPEARANCE,URINE CLEAR; BILIRUBIN,URINE NEGATIVE (NEGATIVE); COLOR,URINE YELLOW; GLUCOSE, URINE NEGATIVE (NEGATIVE); KETONES,URINE NEGATIVE (NEGATIVE); LEUKOCYTE ESTERASE,URINE NEGATIVE (NEGATIVE); NITRITE,URINE NEGATIVE (NEGATIVE); PROTEIN,URINE NEGATIVE (NEGATIVE); URINE SPECIFIC GRAVITY 1.013; UROBILINOGEN,URINE NEGATIVE mg/dL (<2.0)
[2020-04-11 13:03] LABS: ANION GAP 6 (5-19); BLOOD UREA NITROGEN 25 mg/dL (7-20); CALCIUM 8.8 mg/dL (8.4-10.2); CARBON DIOXIDE 27 mmol/L (22-30); CHLORIDE 105 mmol/L (98-107); GLUCOSE 115 mg/dL (75-110); POTASSIUM 4.9 mmol/L (3.6-5.0)
[2020-04-12 10:36] LABS: CREATININE URINE 105.1 mg/dL (Not Estab.); MICROALBUMIN URINE 11.9 ug/mL (Not Estab.)
== END ==
LOC: OD 11:53
PROVIDERS: ATTEND Internal Medicine Nephrology
DX: I12.9 Hypertensive chronic kidney disease with stage 1 through stage 4 chronic kidney disease, or unspecified chronic kidney disease (principal); N18.3 Chronic kidney disease, stage 3 (moderate); E11.22 Type 2 diabetes mellitus with diabetic chronic kidney disease
CPT/HCPCS: 36415; 80048; 81001; 82043; 82570; 85025

== ENCOUNTER 2020-06-16 03:27 | Emergency (ER) | payer MEDICARE, OTHER ==
[2020-06-16 04:01] LABS: APPEARANCE,URINE CLEAR; BILIRUBIN,URINE NEGATIVE (NEGATIVE); COLOR,URINE STRAW; GLUCOSE, URINE NEGATIVE (NEGATIVE); KETONES,URINE NEGATIVE (NEGATIVE); LEUKOCYTE ESTERASE,URINE NEGATIVE (NEGATIVE); NITRITE,URINE NEGATIVE (NEGATIVE); PROTEIN,URINE NEGATIVE (NEGATIVE); URINE SPECIFIC GRAVITY 1.012; UROBILINOGEN,URINE NEGATIVE mg/dL (<2.0)
[2020-06-16 04:12] LABS: HEMATOCRIT 38.8 % (37.9-51.0); MEAN CORPUSCULAR HEMOGLOBIN 27.4 pg (27.0-33.4); MEAN CORPUSCULAR HGB CONC 33.4 g/dL (32.0-36.0); MEAN CORPUSCULAR VOLUME 82 fl (80-97); PLATELET COUNT 162 10^3/uL (150-450); RED BLOOD COUNT 4.72 10^6/uL (4.35-5.55); RED CELL DISTRIBUTION WIDTH 14.1 % (11.5-14.0); WHITE BLOOD COUNT 5.8 10^3/uL (4.0-10.5)
[2020-06-16 04:28] LABS: ALBUMIN 4.3 g/dL (3.5-5.0); ALKALINE PHOSPHATASE 108 U/L (38-126); ANION GAP 7 (5-19); ASPARTATE AMINO TRANSFERASE 26 U/L (17-59); BILIRUBIN,TOTAL 0.7 mg/dL (0.2-1.3); BLOOD UREA NITROGEN 25 mg/dL (7-20); CALCIUM 9.1 mg/dL (8.4-10.2); CARBON DIOXIDE 29 mmol/L (22-30); CHLORIDE 103 mmol/L (98-107); GLUCOSE 104 mg/dL (75-110); POTASSIUM 4.4 mmol/L (3.6-5.0); TOTAL PROTEIN 7.5 g/dL (6.3-8.2)
[2020-06-16 04:45] LABS: ABSOLUTE LYMPHOCYTES# (MANUAL) 0.4 10^3/uL (0.5-4.7); ABSOLUTE MONOCYTES # (MANUAL) 0.6 10^3/uL (0.1-1.4); ANISOCYTOSIS 1+; BAND NEUTROPHILS % (MANUAL) 3 % (3-5); BASOPHILS % (MANUAL) 0 % (0-2); EOSINOPHILS % (MANUAL) 0 % (0-6); LYMPHOCYTES % (MANUAL) 7 % (13-45); MONOCYTES % (MANUAL) 10 % (3-13); POLYCHROMASIA 1+; SEGMENTED NEUTROPHILS % (MAN) 80 % (42-78); TOTAL CELLS COUNTED 100
[2020-06-16 04:46] LABS: PLATELET COMMENT ADEQUATE
--- NOTE | 2020-06-16 07:17 | ER Document Report ---
Entered by KENNY ARMENDARIZ SCRIBE 06/16/20 0624 Acting as scribe for:CHERISE FOY MD ED General - General Chief Complaint: Doesn't Feel Right Stated Complaint: FEVER Time Seen by Provider: 06/16/20 06:22 Primary Care Provider: Kinsey MERLOS MD [Primary Care Provider] - Follow up as needed Mode of Arrival: Ambulatory Information source: Patient Notes: This 85 year old male patient presents to the emergency department today for vom iting. He reports that he was sitting in his ernie reading at 3:00 AM this morning when he suddenly became nauseated and vomited three times. He had a normal bowel movement yesterday evening. EMS reported a temperature of 101 prior to arrival and he was given 975 mg of Tylenol. Patient denies abdominal pain or diarrhea. At this time the nauseousness is gone and patient feels well. He has not had a cough. He states his sensation of smell and taste remains intact and normal. He does not know of any exposure to COVID positive individuals. TRAVEL OUTSIDE OF THE [place] IN LAST 30 DAYS: No - Related Data Allergies/Adverse Reactions: No Known Allergies Allergy (Verified 02/03/19 17:02) Home Medications: Starlix, Lasix Past Medical History - General Information source: Patient - Social History Smoking Status: Never Smoker Cigarette use (# per day): No Frequency of alcohol use: None Drug Abuse: None Lives with: Family Family History: Reviewed & Not Pertinent - Past Medical History Cardiac Medical History: Reports: Hx Congestive Heart Failure Pulmonary Medical History: Reports: Hx Pneumonia Endocrine Medical History: Reports: Hx Diabetes Mellitus Type 2 - Starlix Musculoskeletal Medical History: Reports Hx Arthritis - lower back Past Surgical History: Reports: Hx Kidney (Renal Surgery) - right nephrectomy due to cyst (06/2007), Hx Orthopedic Surgery - Bilateral Knee - Immunizations Hx Diphtheria, Pertussis, Tetanus Vaccination: No Review of Systems - Review of Systems Constitutional: See HPI, Fever - 101 per EMS EENT: No symptoms reported Cardiovascular: No symptoms reported Respiratory: No symptoms reported Gastrointestinal: See HPI, Nausea, Vomiting. denies: Abdominal pain, Diarrhea Genitourinary: No symptoms reported Male Genitourinary: No symptoms reported Musculoskeletal: No symptoms reported Skin: No symptoms reported Hematologic/Lymphatic: No symptoms reported Neurological/Psychological: No symptoms reported -: Yes All other systems reviewed and negative Physical Exam - Vital signs Vitals: Temp Resp BP Pulse Ox 99.7 F 18 136/74 H 100 06/16/20 03:28 06/16/20 03:28 06/16/20 03:28 06/16/20 03:28 - Notes Notes: Physical Exam: General: Alert, appears well. HEENT: Normocephalic. Atraumatic. PERRL. Extraocular movements intact. Oropharynx clear. Neck: Supple. Non-tender. Respiratory: No respiratory distress. Clear and equal breath sounds bilaterally. Cardiovascular: Regular rate and rhythm. Abdominal: Dull to percuss. Non-tender. No distension. Back: No gross abnormalities. Extremities: Moves all four extremities. Upper extremities: Normal inspection. Normal ROM. Lower extremities: 1+ pitting edema bilaterally. Normal ROM. Neurological: Normal cognition. AAOx4. Normal speech. Psychological: Normal affect. Normal Mood. Skin: Warm. Dry. Normal color. Course - Re-evaluation Re-evalutation: 06/16/20 09:50 Differential diagnosis at this time has to include the COVID 19 virus, as the patient is completely asymptomatic after receiving only Tylenol from EMS and his lab work is unremarkable. - Vital Signs Vital signs: Temp Pulse Resp BP Pulse Ox 99.1 F 16 112/66 99 06/16/20 06:10 06/16/20 09:01 06/16/20 09:00 06/16/20 08:01 - Laboratory Result Diagrams: 06/16/20 03:35 06/16/20 03:35 Laboratory results interpreted by me: 06/16/20 06/16/20 03:35 03:35 Hgb 13.0 L RDW 14.1 H Seg Neuts % (Manual) 80 H Lymphocytes % (Manual) 7 L Abs Lymphs (Manual) 0.4 L BUN 25 H Creatinine 1.76 H Est GFR ( Amer) 45 L Est GFR (MDRD) Non-Af 37 L - Diagnostic Test Radiology reviewed: Image reviewed, Reports reviewed - Chest x-ray does not show acute cardiopulmonary process. - EKG Interpretation by Me EKG shows normal: Sinus rhythm, [place], Intervals, QRS Complexes, ST-T Waves Rate: Normal - 89 Rhythm: NSR Discharge - Discharge Clinical Impression: Stage III chronic kidney disease, Encounter for laboratory testing for COVID-19 virus Fever Qualifiers: Fever type: unspecified Qualified Code(s): R50.9 - Fever, unspecified Nausea and vomiting Qualifiers: Vomiting type: unspecified Vomiting Intractability: non-intractable Qualified Code(s): R11.2 - Nausea with vomiting, unspecified Condition: Stable Disposition: HOME, SELF-CARE Instructions: COVID-19 Guidance for Persons Under Investigation Additional Instructions: Fever Fever is the body's reaction to infection. Fever can also occur with illnesses that create fever-producing substances in the body. By itself, fever is not harmful. It helps the body fight invading germs. We are more concerned with: (1) What's causing the fever? (2) How can we keep you more comfortable until the fever goes away? Early in an illness, symptoms are often so vague that a diagnosis can't be made. If the doctor hasn't identified a clear cause for your fever, you will probably develop new symptoms within the next two days. Contact the doctor if you develop severe worsening headache, rash, chest pain, cough with yellow or green sputum, difficulty breathing, abdominal pain, or other new symptoms. There is no reason to treat a fever if you're comfortable. If the fever is causing aches, headache, and fatigue, you can treat it with ibuprofen (Advil, Nuprin, etc) or acetaminophen (Tylenol). Follow the directions on the bottle. Get plenty of liquids (three quarts per day). Rest. Physical work or sports will raise the temperature higher and make you feel much worse. Dress lightly. If you're chilling, this means the temperature is trying to go higher. Take ibuprofen or acetaminophen. When you feel sweaty and "feverish" the temperature is coming down. If the fever doesn't go away within two days or if you become more ill, call the doctor or return at once for re-examination. Nausea or Vomiting, Nonspecific Vomiting (or nausea without vomiting) can be caused by many different problems. Of course, it can mean that something's wrong with the stomach, such as "stomach flu," ulcers, or inflammation. But it can also be a symptom of a problem that has nothing to do with the stomach or intestines. Vomiting is common with severe headaches, earaches, and tonsillitis. We see it with pneumonia or heart attacks. Drugs can cause nausea. Many abdominal problems cause vomiting; for example, gallstones, kidney stones, pancreatitis, and intestinal obstruction (blocked bowels). In most cases, curing the vomiting depends on fixing the problem that caused it. For temporary relief, we may use an anti-nausea medicine. For home u se, we can prescribe suppositories, chewable pills, pills that dissolve in the mouth, or liquid anti-nausea drugs. If the vomiting seems to be caused by a problem in the stomach, acid-suppressing drugs may be prescribed as well. It's important to avoid dehydration. Sip clear liquids. Take increasing amounts of fluid over the first 24 hours. Then start small amounts of bland foods (such as dry toast, applesauce, mashed potato). Avoid aspirin, tobacco, and alcohol. Gradually resume your usual diet. If the vomiting worsens, if the problem that's making you vomit worsens, or if there's evidence of bleeding in the stomach (such as black, tarry stool, bloody or black vomit, or lightheadedness), you should return immediately. Call your doctor if you aren't improved in 24 to 36 hours. * You are being tested for COVID-19 virus due to the nonspecific nature of your symptoms. Take the Zofran as dispensed and prescribed for nausea if needed. Take Tylenol for fever if needed. Drink small sips of cool clear liquids throughout the day and rest. The results from the COVID testing should be back by Wednesday this week. Follow the instructions provided about self-isolation until you get the results of the COVID testing. Return the emergency room if you have worsening symptoms, particularly any respiratory difficulties. RETURN TO THE EMERGENCY ROOM IF ANY NEW OR WORSENING SYMPTOMS. Prescriptions: Ondansetron [Zofran Odt 4 mg Tablet] 1 - 2 tab PO Q4H PRN #10 tab.rapdis PRN Reason: Referrals: Kinsey MERLOS MD [Primary Care Provider] - Follow up as needed I personally performed the services described in the documentation, reviewed and edited the documentation which was dictated to the scribe in my presence, and it accurately records my words and actions.
--- NOTE | 2020-06-16 08:32 | RADIOLOGY REPORT (SQ) ---
EXAM DESCRIPTION: CHEST SINGLE VIEW IMAGES COMPLETED DATE/TIME: 06/16/2020 8:16 am REASON FOR STUDY: fever, N V COMPARISON: 03/16/2019 EXAM PARAMETERS: NUMBER OF VIEWS: One view. TECHNIQUE: Single frontal radiographic view of the chest acquired. RADIATION DOSE: NA LIMITATIONS: None. FINDINGS: LUNGS AND PLEURA: No opacities, masses or pneumothorax. No pleural effusion. MEDIASTINUM AND HILAR STRUCTURES: No masses. Contour normal. HEART AND VASCULAR STRUCTURES: Right aortic arch. Heart normal in size. Normal vasculature. BONES: No acute findings. HARDWARE: None in the chest. OTHER: No other significant finding. IMPRESSION: NO ACUTE RADIOGRAPHIC FINDING IN THE CHEST. TECHNICAL DOCUMENTATION: JOB ID: [id number] 2010 [employer]- All Rights Reserved Reading location - IP/workstation name: [email or web address]
--- NOTE | 2020-06-16 08:43 | EKG REPORT ---
SEVERITY:- NORMAL ECG - SINUS RHYTHM : Confirmed by: Srinath Uriostegui MD 16-Jun-2020 08:42:21
[2020-06-16] MEDS ORDERED: ONDANSETRON ODT 4 MG TAB (6 TAB/ER DISP) PO PRN (10:13)
[2020-06-16 10:15] VITALS: BP 123/75
== END 2020-06-16 10:28 | disposition home or self-care (01) ==
LOC: ER 03:27
DX: R50.9 Fever, unspecified (principal); R11.2 Nausea with vomiting, unspecified; E11.22 Type 2 diabetes mellitus with diabetic chronic kidney disease; N18.3 Chronic kidney disease, stage 3 (moderate); Z20.828 Contact with and (suspected) exposure to other viral communicable diseases; I50.9 Heart failure, unspecified
CPT/HCPCS: 93005; 99284; 96365; 36415; 87040; 82550; 83690; 85025; 80053; 81001; 84484; 71045; 93010; U0003; A9270; C9803; 87635

== ENCOUNTER 2020-09-18 13:08 | Day surgery (SDC) | payer MEDICARE, OTHER ==
[~2020-09-18 13:08] MED LIST: CHONDR SU A NA/HYALUR INTRAOC KIT (SURGICARE) ONE; DORZOLAMIDE HCL 2%/TIMOLOL MALEAT 0.5% OPH SOLN 10 ML OS PRN; EPINEPHRINE INJ/PF 1 MG/1 ML AMPULE ONE; KETOROLAC TROMETHAMINE 0.45% 4 DROP/0.4 ML DROPERETTE OS PRN; LIDOCAINE 1%/PHENYLEPHRINE 1.5% 1 ML VIAL ONE; MIDAZOLAM 2 MG/2 ML INJ ONE; PREDNISOLONE ACETATE 1% OPH SUSP 5 ML OS PRN
[2020-09-18] MEDS: CYCLOPENTOLATE 0.2%/PHENYLEPHRINE 1% OPH SOLN 2 ML OS PRN ×3 (14:25→14:41)
[2020-09-18] MEDS: TETRACAINE HCL 0.5% OPH SOLN 4 ML OS PRN ×3 (14:25→14:58)
[2020-09-18] MEDS: TROPICAMIDE 1% OPH SOLN 15 ML OS PRN ×3 (14:25→14:41)
[2020-09-18] MEDS: BESIFLOXACIN HCL 0.6% OPH SUSP 5 ML BOTTLE OS PRN ×3 (14:25→15:20)
[2020-09-18] MEDS ORDERED: MIDAZOLAM 2 MG/2 ML INJ ONE (14:32)
--- NOTE | 2020-09-18 16:35 | Operative Report ---
Operative Report-[facility] Operative Report: DATE OF SURGERY: September 18, 2020 PREOPERATIVE DIAGNOSIS: NUCLEAR CATARACT, LEFT EYE. POSTOPERATIVE DIAGNOSIS: NUCLEAR CATARACT, LEFT EYE. PROCEDURE PERFORMED: PHACOEMULSIFICATION WITH POSTERIOR CHAMBER INTRAOCULAR LENS IMPLANT, LEFT EYE. SURGEON: Henrik Randall DO MEDICATIONS AND ANESTHESIA: Versed: IV Versed Tetracaine drops: 1 to 2 drops given as needed COMPLICATION: None INDICATIONS FOR SURGERY: Medical necessity: Best corrected visual acuity worse than 20/40 secondary to cataracts with impairment of ability to carry out needs or desired activities, blurred vision, visual distortion, reduced contrast sensitivity and/or glare with association functional impairment and supporting documentation/testing, and cataracts causing symptomatic impairment of visual functions not corrected with tolerable changes in glasses or contact lenses interfering with activities of daily life. PROCEDURE: Consent: The risks, benefits and alternatives of this procedures was discussed with the patient. The patient read and signed the consent forms, was identified and was seated in the exam chair. IOL: MX 60 E 16.0 IOL Diopters: Phacoemulsification with posterior chamber intraocular lens implant: The face was prepped with 5% povidone iodine solution, and a few drops of 5% povidone iodine solution was instilled into the inferior fornix. A non-fenestrated drape was placed over the eye and the lids were parted with the speculum. A paracentesis was made with a 15 degree blade, and 1% lidocaine MPF followed by viscoelastic was injected into the anterior chamber. A 2.4 mm metal micro- keratome was used to create a temporal clear corneal incision. A circular anterior capsulorrhexis was created, followed by hydro-dissection and hydro- delineation. The phacoemulsification hand piece was inserted and the nucleus was removed with the Phaco chop technique. The irrigation-aspiration hand piece was used to remove the residual cortex, and vacuum the posterior capsule. The capsular bag was inflated and viscoelastic and the above-mentioned IOL was injected into the eye with care to insert both leaning and trailing haptics in the capsular bag. The irrigation/aspiration hand piece was reinserted to remove residual viscoelastic from the capsular bag and anterior chamber. The corneal incision was hydrated, and anterior chamber was inflated with sterile BSS via the paracentesis site, and found to be watertight. Postop medication:1 drop of prednisolone into operative by followed by 1 drop of Cosopt into operative eye followed by 1 drop of Besivance intraoperative by Other:
== END 2020-09-18 15:59 | disposition home or self-care (01) ==
LOC: SC 13:08
PROVIDERS: ATTEND Ophthalmology
DX: H25.12 Age-related nuclear cataract, left eye (principal); E11.36 Type 2 diabetes mellitus with diabetic cataract; Z79.82 Long term (current) use of aspirin
CPT/HCPCS: 82962; 00142; 66984; V2632; J2250; J3490 ×2; A9270; J0171; 142

== ENCOUNTER 2020-10-02 06:26 | Day surgery (SDC) | payer MEDICARE, OTHER ==
[~2020-10-02 06:26] MED LIST changes: -CHONDR SU A NA/HYALUR INTRAOC KIT (SURGICARE) ONE; +DORZOLAMIDE HCL 2%/TIMOLOL MALEAT 0.5% OPH SOLN 10 ML OD PRN; -DORZOLAMIDE HCL 2%/TIMOLOL MALEAT 0.5% OPH SOLN 10 ML OS PRN; -EPINEPHRINE INJ/PF 1 MG/1 ML AMPULE ONE; +KETOROLAC TROMETHAMINE 0.45% 4 DROP/0.4 ML DROPERETTE OD PRN; -KETOROLAC TROMETHAMINE 0.45% 4 DROP/0.4 ML DROPERETTE OS PRN; -LIDOCAINE 1%/PHENYLEPHRINE 1.5% 1 ML VIAL ONE; -MIDAZOLAM 2 MG/2 ML INJ ONE; +PREDNISOLONE ACETATE 1% OPH SUSP 5 ML OD PRN; -PREDNISOLONE ACETATE 1% OPH SUSP 5 ML OS PRN
[2020-10-02] MEDS ORDERED: LIDOCAINE 1%/PHENYLEPHRINE 1.5% 1 ML VIAL ONE (06:41)
[2020-10-02] MEDS ORDERED: EPINEPHRINE INJ/PF 1 MG/1 ML AMPULE ONE (06:41)
[2020-10-02] MEDS: TETRACAINE HCL 0.5% OPH SOLN 4 ML OD PRN ×3 (07:01→07:55)
[2020-10-02] MEDS: TROPICAMIDE 1% OPH SOLN 15 ML OD PRN ×3 (07:01→07:30)
[2020-10-02] MEDS: BESIFLOXACIN HCL 0.6% OPH SUSP 5 ML BOTTLE OD PRN ×3 (07:02→08:13)
[2020-10-02] MEDS: CYCLOPENTOLATE 0.2%/PHENYLEPHRINE 1% OPH SOLN 2 ML OD PRN ×3 (07:02→07:30)
[2020-10-02] MEDS ORDERED: MIDAZOLAM 2 MG/2 ML INJ ONE (07:03)
[2020-10-02] MEDS: CHONDR SU A NA/HYALUR INTRAOC KIT (SURGICARE) ONE ×2 (08:03→08:13)
--- NOTE | 2020-10-02 10:22 | Operative Report ---
Operative Report-[facility] Operative Report: DATE OF SURGERY: October 02, 2020 PREOPERATIVE DIAGNOSIS: NUCLEAR CATARACT, RIGHT EYE. POSTOPERATIVE DIAGNOSIS: NUCLEAR CATARACT, RIGHT EYE. PROCEDURE PERFORMED: PHACOEMULSIFICATION WITH POSTERIOR CHAMBER INTRAOCULAR LENS IMPLANT, RIGHT EYE. SURGEON: Henrik Randall DO MEDICATIONS AND ANESTHESIA: Versed: IV Versed Tetracaine drops: 1 to 2 drops given as needed COMPLICATION: None INDICATIONS FOR SURGERY: Medical necessity: Best corrected visual acuity worse than 20/40 secondary to cataracts with impairment of ability to carry out needs or desired activities, blurred vision, visual distortion, reduced contrast sensitivity and/or glare with association functional impairment and supporting documentation/testing, and cataracts causing symptomatic impairment of visual functions not corrected with tolerable changes in glasses or contact lenses interfering with activities of daily life. PROCEDURE: Consent: The risks, benefits and alternatives of this procedures was discussed with the patient. The patient read and signed the consent forms, was identified and was seated in the exam chair. IOL: MX 60 E 16.0 IOL Diopters: Phacoemulsification with posterior chamber intraocular lens implant: The face was prepped with 5% povidone iodine solution, and a few drops of 5% povidone iodine solution was instilled into the inferior fornix. A non-fenestrated drape was placed over the eye and the lids were parted with the speculum. A paracentesis was made with a 15 degree blade, and 1% lidocaine MPF followed by viscoelastic was injected into the anterior chamber. A 2.4 mm metal micro- keratome was used to create a temporal clear corneal incision. A circular anterior capsulorrhexis was created, followed by hydro-dissection and hydro- delineation. The phacoemulsification hand piece was inserted and the nucleus was removed with the Phaco chop technique. The irrigation-aspiration hand piece was used to remove the residual cortex, and vacuum the posterior capsule. The capsular bag was inflated and viscoelastic and the above-mentioned IOL was injected into the eye with care to insert both leaning and trailing haptics in the capsular bag. The irrigation/aspiration hand piece was reinserted to remove residual viscoelastic from the capsular bag and anterior chamber. The corneal incision was hydrated, and anterior chamber was inflated with sterile BSS via the paracentesis site, and found to be watertight. Postop medication: 1 drop of prednisolone into operative by followed by 1 drop of Cosopt into operative eye followed by 1 drop of Besivance intraoperative by other:
== END 2020-10-02 08:58 | disposition home or self-care (01) ==
LOC: SC 06:26
PROVIDERS: ATTEND Ophthalmology
DX: H25.11 Age-related nuclear cataract, right eye (principal); Z98.42 Cataract extraction status, left eye; E11.36 Type 2 diabetes mellitus with diabetic cataract; Z79.84 Long term (current) use of oral hypoglycemic drugs; Z79.82 Long term (current) use of aspirin
CPT/HCPCS: 66984; 82962; V2632; J2250; J3490 ×2; A9270; J0171